=== PATIENT | male | born 1950 | race Caucasian/White ===

== ENCOUNTER 2019-05-19 04:24 | Emergency (ER) | payer MEDICARE, MEDICAID ==
[~2019-05-19] VITALS: Ht 198.1 cm; Wt 120.0 kg
[2019-05-19] MEDS ORDERED: DOXA4TAB2 MT (05:13)
[2019-05-19] MEDS ORDERED: FINA5TAB3 PO (05:17)
[2019-05-19] MEDS ORDERED: OLME1TAB86 MT (05:19)
[2019-05-19 06:03] LABS: CLARITY URINE CLOUDY (CLEAR); COLOR URINE ORANGE (YELLOW); KETONES URINE NEGATIVE (NEGATIVE); LEUKOCYTE ESTERASE URINE 3+ (NEGATIVE); NITRITE URINE POSITIVE (NEGATIVE); OCCULT BLOOD URINE 3+ (NEGATIVE); PROTEIN URINE 2+ (NEGATIVE); SPECIFIC GRAVITY URINE 1.006 (1.005-1.030); UROBILINOGEN URINE 0.2 E.U./dL (0.2-1.0)
[2019-05-19] MEDS ORDERED: SODIUM CHLORIDE 0.9% 2,000 ML IV ONE (06:34)
[2019-05-19] MEDS ORDERED: ACETAMINOPHEN 325MG TABLET PO STA (06:34)
[2019-05-19] MEDS ORDERED: CEFTRIAXONE 1 G PREMIX 50 ML IV ONE (06:45)
[2019-05-19 07:12] LABS: BASOPHILS % 0.9 % (0.0-2.0); EOSINOPHILS % 0.9 % (0.0-5.0); HEMATOCRIT. 44.5 % (42.0-52.0); HEMOGLOBIN. 15.4 g/dL (14.0-18.0); LYMPHOCYTES % 12.2 % (20.0-50.0); MEAN CORPUSCULAR HEMOGLOBIN 31.6 pg (28.0-32.0); MEAN CORPUSCULAR VOLUME 91.1 fL (80.0-94.0); MEAN PLATELET VOLUME 7.6 fl (7.4-10.4); PLATELET 202 x1000/uL (130-400); RED BLOOD CELL COUNT 4.89 mill/uL (4.7-6.1); RED CELL DISTRIBUTION WIDTH 14.1 % (11.6-14.6)
[2019-05-19 07:20] LABS: CHLORIDE 102 mEq/L (98-107)
[2019-05-19 07:23] LABS: PROTHROMBIN TIME 10.7 sec (9.6-11.0)
[2019-05-19 09:20] VITALS: BP 121/78
== END 2019-05-19 09:24 | disposition home or self-care (01) ==
LOC: ER 04:24
DX: N39.0 Urinary tract infection, site not specified (principal); I10 Essential (primary) hypertension; Z98.890 Other specified postprocedural states; Z79.899 Other long term (current) drug therapy; Z86.018 Personal history of other benign neoplasm
CPT/HCPCS: 36415; 71045; 74176; 80053; 81003; 83605; 83880; 84145; 85025; 85610; 87040; 87077; 87086; 87186; 93005; 96365; 99285; J0696; J7030

== ENCOUNTER 2020-02-12 00:09 | Emergency (ER) | payer MEDICAID, MEDICARE ==
[~2020-02-12] VITALS: Ht 190.5 cm; Wt 120.0 kg
[~2020-02-12 00:09] MED LIST: DOXA4TAB2 MT; FINA5TAB3 PO; OLME1TAB86 MT
[2020-02-12 01:11] LABS: CLARITY URINE TURBID (CLEAR); COLOR URINE RED (YELLOW); KETONES URINE 2+ (NEGATIVE); LEUKOCYTE ESTERASE URINE 3+ (NEGATIVE); NITRITE URINE POSITIVE (NEGATIVE); OCCULT BLOOD URINE 3+ (NEGATIVE); PROTEIN URINE 3+ (NEGATIVE); SPECIFIC GRAVITY URINE 1.013 (1.005-1.030)
[2020-02-12 04:01] LABS: CHLORIDE 104 mEq/L (98-107)
[2020-02-12 04:06] LABS: BASOPHILS % 0.4 % (0.0-2.0); EOSINOPHILS % 0.5 % (0.0-5.0); HEMATOCRIT. 41.6 % (42.0-52.0); LYMPHOCYTES % 10.3 % (20.0-50.0); MEAN CORPUSCULAR HEMOGLOBIN 31.4 pg (28.0-32.0); MEAN CORPUSCULAR VOLUME 92.9 fL (80.0-94.0); MEAN PLATELET VOLUME 7.5 fl (7.4-10.4); MONOCYTES % 8.1 % (2.0-8.0); NEUTROPHILS % 80.7 % (40.0-76.0); PLATELET 184 x1000/uL (130-400); RED BLOOD CELL COUNT 4.48 mill/uL (4.7-6.1); RED CELL DISTRIBUTION WIDTH 13.4 % (11.6-14.6)
[2020-02-12 04:51] VITALS: BP 135/77
== END 2020-02-12 04:59 | disposition home or self-care (01) ==
LOC: ER 00:09
DX: T83.098A Other mechanical complication of other urinary catheter, initial encounter (principal); N40.1 Benign prostatic hyperplasia with lower urinary tract symptoms; N39.0 Urinary tract infection, site not specified; R31.0 Gross hematuria; Y82.8 Other medical devices associated with adverse incidents; Y92.89 Other specified places as the place of occurrence of the external cause; I10 Essential (primary) hypertension; I45.10 Unspecified right bundle-branch block
CPT/HCPCS: 36415; 80048; 81003; 85025; 87077; 87186; 93005; 99284; A4315